=== PATIENT | male | born 1955 | race Caucasian/White ===

== ENCOUNTER → 2020-06-09 | Outpatient (CLI) | payer MEDICARE, OTHER | LOC: M.RAD 10:50 | PROVIDERS: ATTEND Internal Medicine | DX: R07.89 Other chest pain (principal) ==

== ENCOUNTER → 2020-07-09 | Outpatient (CLI) | payer MEDICARE, OTHER ==
--- NOTE | 2020-07-13 13:11 | CARDNUC ---
[place] [address] CARDIAC NUCLEAR IMAGING REPORT Name: SULEIMAN LAUREN Room: [facility]#: [id number] Admission: 07/09/20 Attend Phys: Reilly Reese, Discharge: Date of : 55 Date of Service: 07/13/20 1311 Report #: [id number] THIS REPORT FOR: cc: Laurent Monroe MD, Dean L. MD Liston, Michael J. MD [facility] ~ APPROVED REPORT Imaging Protocol: Rest Tc-99m/Stress Tc-99m 1 day Study performed: 07/09/2020 07:32:00 Indication: Chest pain Patient Location: Out-Patient Stress Tech: Annika Mello Stress Nurse: Joyce Villatoro RN NM Tech:ARNOLDO Bonner Ht: 5 ft 10 in Wt: 198 lbs BSA: 2.08 m2 BMI: 28.40 Medical History Medical History: Hyperlipidemia Medications: no meds Allergies: No known drug allergies Cardiac Risk Factors: Age, Hyperlipidemia Exercise History: Physically active Resting Data Rest SPECT myocardial perfusion imaging was performed in supine position 30 minutes following the intravenous injection of 10.0 mCi of Tc-99m Sestamibi. Time of rest injection: 754 Date: 07/09/2020 The images were gated to evaluate regional wall motion and calculate left ventricular ejection fraction. Administration Route: IV Exercise Stress At peak stress, the patient was injected intravenously with 32.6mCi of Tc-99m Sestamibi. Time of stress injection: 934 Date: 07/09/2020 Administration Route: IV Gated Stress SPECT was performed 30 minutes after stress injection. The images were gated to evaluate regional [place] [address] CARDIAC NUCLEAR IMAGING REPORT Name: SULEIMAN LAUREN Room: [facility]#: [id number] Admission: 07/09/20 Attend Phys: Reilly Reese, Discharge: Date of : 55 Date of Service: 07/13/20 1311 Report #: [id number] left ventricular ejection fraction. Prone imaging was performed. Stress Test Details Stress Test: Exercise stress testing was performed using a Dyllan protocol. HR Max Heart Rate (APMHR): 155 bpm Resting HR: 60 bpm Target HR (85% APMHR): 131 bpm Max HR Achieved: 146 bpm % of APMHR: 94 Recovery HR: 88 bpm BP Resting BP: 111/67 mmHg Max BP: 178/60 mmHg Recovery BP: 121/78 mmHg ECG Resting ECG: Sinus Rhythm Stress ECG: Sinus Tachycardia ST Change: None Arrhythmia: None Recovery ECG: Sinus Rhythm Recovery ST Change: None Recovery Arrhythmia: None Clinical Reason for Termination: Fatigue Exercise duration: 9 min 59 sec Exercise capacity: 11.77 METs Functional Aerobic Impairment 91% The patient tolerated standard Dyllan protocol exercise without significant cardiac symptoms. Stress ECG Conclusion The baseline twelve-lead EKG shows sinus rhythm without significant ST segment or T wave abnormality. EKGs obtained during and post exercise shows sinus rhythm and sinus tachycardia with 0.[address] segment depression that does not meet diagnostic criteria for stress-induced ischemia. There were no stress-induced arrhythmias. Study Quality Study: Good Artifact: [place] [address] CARDIAC NUCLEAR IMAGING REPORT Name: SULEIMAN LAUREN Room: [facility]#: [id number] Admission: 07/09/20 Attend Phys: Reilly Rafal Reese, Discharge: Date of : 55 Date of Service: 07/13/20 1311 Report #: [id number] Study Data At rest, the left ventricular ejection fraction was 70%.. Post stress, the left ventricular ejection was 57%.. TID = 1.02. Perfusion Perfusion images obtained in the supine position at rest and post exercise stress show very mild photopenia in the basal to mid inferior wall that resolves completely with post-rest prone imaging ingesting diaphragmatic attenuation artifact. No other significant fixed or reversible defects are identified. Wall Motion Normal left ventricular wall motion. Nuclear Conclusion ECG Findings: negative for ischemia Clinical Findings: negative for ischemia Nuclear Findings: negative for ischemia Exercise Capacity: normal Left Ventricular Function: normal Risk Study: low Perfusion study show no defect to suggest infarct or ischemia. Left ventricular systolic function appears normal on gated studies. This is a low risk study. <Conclusion> The baseline twelve-lead EKG shows sinus rhythm without significant ST segment or T wave abnormality. EKGs obtained during and post exercise shows sinus rhythm and sinus tachycardia with 0.[address] segment depression that does not meet diagnostic criteria for stress-induced ischemia. There were no stress-induced arrhythmias. <ELECTRONICALLY SIGNED> By: Manish Goff MD, FACC 07/13/20 131 10 10 Manish Goff MD, FACC /INF
== END ==
LOC: M.NUC 06-23 10:02
PROVIDERS: ATTEND Internal Medicine
DX: R07.89 Other chest pain (principal); E78.00 Pure hypercholesterolemia, unspecified; Z82.49 Family history of ischemic heart disease and other diseases of the circulatory system